=== PATIENT | male | born 1965 | race Caucasian/White ===

== ENCOUNTER 2016-11-14 23:50 | Emergency (ER) | payer SELFPAY ==
[2016-11-14 20:21] LABS: BASOPHILS 0.7 %; BASOPHILS ABSOLUTE 0.07 10/3/uL (0.0-0.16); EOSINOPHILS 7.7 %; EOSINOPHILS ABSOLUTE 0.81 10/3/uL (0.0-0.53); HEMATOCRIT 43.2 % (40.0-51.0); HEMOGLOBIN 15.5 g/dL (13.6-17.8); IMMATURE GRANULOCYTES 0.2 %; IMMATURE GRANULOCYTES ABSOLUTE 0.02 10/3/uL (0.0-0.11); LYMPHOCYTES 24.4 %; LYMPHOCYTES ABSOLUTE 2.56 10/3/uL (0.67-4.30); MEAN CORPUS HGB CONC 35.9 g/dL (32.0-36.0); MEAN CORPUSCULAR HEMOGLOB 29.2 pg (26.0-34.0); MEAN CORPUSCULAR VOLUME 81.5 fL (80-100); MEAN PLATELET VOLUME 10.8 fL (9.2-13.0); MONOCYTES 4.3 %; MONOCYTES ABSOLUTE 0.45 10/3/uL (0.21-1.20); NEUTROPHILS 62.7 %; NEUTROPHILS ABSOLUTE 6.58 10/3/uL (2.02-8.40); PLATELET COUNT 286 10/3/uL (150-400); RBC DISTRIBUTION WIDTH 12.4 % (12.0-16.0); WHITE BLOOD CELLS 10.5 10/3/uL (4.5-10.5)
[2016-11-14 20:22] LABS: MANUAL DIFF NO %
[2016-11-14 20:36] LABS: A/G RATIO 1.1 (0.7-1.9); ALBUMIN 3.9 G/DL (3.5-5.0); BUN (BLOOD UREA NITROGEN) 17 MG/DL (6-23); CALCIUM, SERUM 8.8 MG/DL (8.5-10.4); CHLORIDE, SERUM 101 MMOL/L (96-112); CO2 (CARBON DIOXIDE) 23 MMOL/L (24-34); CREATININE 1.28 MG/DL (0.70-1.30); GFR AFRICAN AMERICAN 76 ML/MIN (>=60); GFR NON AFRICAN AMERICAN 65 ML/MIN (>=60); GLOBULIN 3.5 G/DL (2.5-4.1); POTASSIUM, SERUM 4.1 MMOL/L (3.5-5.3); SGOT(AST) 24 U/L (5-40); SGPT(ALT) 59 U/L (5-65); SODIUM, SERUM 135 MMOL/L (135-148); TOTAL BILIRUBIN 0.2 MG/DL (0-1.2); TOTAL PROTEIN 7.4 G/DL (6.0-8.5)
[2016-11-14 20:39] LABS: ALKALINE PHOSPHATASE 90 U/L (45-117); GLUCOSE, SERUM 364 MG/DL (60-99)
[2016-11-15 01:12] LABS: ASCORBIC ACID (UR NOT ORDER) NEG (NEG); BILIRUBIN, URINE NEGATIVE (NEG); ER URINALYSIS TAT 0 Hrs 00 Mins; KETONE, URINE NEGATIVE (NEG); LEUKOCYTE ESTERASE(NOT OR SMALL (NEG); NITRITE (URINE) NEG (NEG); WBC (NOT ORDERED) (RFLEX) 28 (0-5)
[2016-11-15] MEDS ORDERED: ZESTRIL40 MG PO (15:23)
[2016-11-15] MEDS ORDERED: NORV10 PO (15:23)
[2016-11-15] MEDS ORDERED: PRAVACHOL40 MG PO (15:23)
[2016-11-15] MEDS ORDERED: JANUMET1 TA1 PO (15:23)
[2016-11-15] MEDS ORDERED: LANTUS SC (15:23)
[2016-11-15] MEDS ORDERED: CYMBALTA30 PO (15:24)
[2016-11-15] MEDS ORDERED: GARLIC PO (15:24)
[2016-11-15] MEDS ORDERED: ASABAYER PO (15:24)
== END 2016-11-15 03:06 | disposition home or self-care (01) ==
LOC: ER 23:50
PROVIDERS: Emergency Medicine
DX: E11.65 Type 2 diabetes mellitus with hyperglycemia (principal); L03.011 Cellulitis of right finger; Z86.73 Personal history of transient ischemic attack (TIA), and cerebral infarction without residual deficits; Z88.2 Allergy status to sulfonamides; Z88.5 Allergy status to narcotic agent
CPT/HCPCS: 71020; 73130-RT; 80053; 81001; 82009; 82962; 85025; 87040; 87086; 96374; 99285; A9270-GY

== ENCOUNTER 2016-11-15 14:31 | Inpatient (IN) | payer SELFPAY ==
--- NOTE | ~2016-11-15 | HP ---
History And Physical [place] [address] [facility] [place]. [address] NAME: AILEEN LAMB : 69 STATUS : ADM IN PAT#: [id number] AGE: 51 ADM/REG DATE : 11/15/16 MR#: [id number] REPORT SERV DATE: 11/15/16 DICTATED BY: ALEJANDRA LUI DATE: 11/15/16 REPORT STATUS : Draft TRANSCRIBED BY: MODL DATE: 11/15/16 DATE OF ADMISSION: 11/15/2016 EXAMINING PHYSICIAN: Alejandra Lui M.D. REASON FOR ADMISSION: Osteomyelitis of digit 3 of right hand. 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 He presented with an elevated blood sugar at that time over 500. He was found to have a paronychia of the right 3rd finger. No surgical intervention was done, though there was intense pressure at that time, no antibiotics were given. He continued to try to soak it and induce drainage and it never drained completely. He continued with episodic flare up, festering, and swelling, and he saw his primary care nurse practitioner at the [facility] on 11/10/2016. She agreed it was infected but said there is nothing to do about it and would go away. No antibiotics were given again. The patient came to the emergency room last night with elevated blood sugar of 500, and he was found to have a soft tissue swelling throughout the right middle finger with finding suggesting osteomyelitis in the distal phalanx. He was called by Radiology this morning to return back to the emergency room. Dr. Diallo saw him in the waiting room in the emergency room and requested direct admission. The patient has been admitted directly from the waiting room of the emergency room at [facility]. He has an appointment to see Dr. Gustavo Gaona, hand surgeon, with [facility]. PAST MEDICAL HISTORY: He had a stroke in [place], [place] on 07/27/2015. 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 He does have a history of diabetes diagnosed about 10 years ago. Hyperlipidemia and hypertension as well. PAST SURGICAL HISTORY: In 1993, he had bilateral inguinal hernia repair. In 2006, he had a bimalleolar fracture dislocation of his right ankle while playing basketball with college kids. MEDICATIONS: His home medications include the following: Amlodipine 10 mg p.o. daily, aspirin 325 p.o. daily, Duloxetine 30 mg p.o. daily, Lantus 40 units subcu at bedtime, lisinopril 40 mg p.o. daily, pravastatin 40 mg p.o. at bedtime, Janumet one p.o. with breakfast, garlic one a day. ALLERGIES: INCLUDE SULFA CAUSING SWELLING OF HIS FACE WITH NAUSEA AND VOMITING. 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 He does not smoke, drink, or dip snuff. His who works at [employer] in [place] him and he raised the three children. The three children now are two teachers and one a assistant men's lacrosse coach and a principal at [employer] and a History And Physical [address] [place]. [address] NAME: AILEEN LAMB : 69 STATUS : ADM IN [facility]#: [id number] AGE: 51 ADM/REG DATE : 11/15/16 MR#: [id number] REPORT SERV DATE: 11/15/16 DICTATED BY: ALEJANDRA LUI DATE: 11/15/16 REPORT STATUS : Draft TRANSCRIBED BY: TIFFANIE DATE: 11/15/16 daughter who is a nurse at [employer]. He does not take any alcohol. He does not attend episcopal. His children were softball players traveling teams, and he remarried woman now his who lives in [place]. They are raising a grandchild now. He does not attend episcopal presently; however, his father was a Sabianist agriculture science teacher as was his uncle. FAMILY HISTORY: High blood pressure and diabetes run in the family. REVIEW OF SYSTEMS: He has occasional hiccups. He has spasms of his left side. He has some hemiparesis on the left side as well. No double vision. He has gained 30 pounds since his stroke. No fever, chills, night sweats, melena, hematemesis, nausea, vomiting, or diarrhea. He 1st injured the index finger on the right side with turning back the fingernail wrestling with his step- grandchild. No chest pain, shortness of breath. No previous heart history. No cough, fever, chills, or night sweats. No dysuria, fits, seizures, or convulsions. PHYSICAL EXAMINATION: GENERAL: This is an obese white male, in no acute distress. HEENT: EOMI. Sclera is injected on the left side. Conjunctivae pink. NECK: No bruit without any JVD. CHEST: Clear to A and P. HEART: Regular S1, S2 without murmur, gallop, or click. ABDOMEN: Soft, obese, nontender. Bowel sounds positive. No HSM. EXTREMITIES: He has a paronychia and inflammation of the DIP on the 3rd digit right hand. It also has a reddened area at the antecubital fossa into the medial aspect of the upper arm with tenderness and throbbing subjectively. NEUROLOGIC: He withdraws to plantar stimulation. [employer] Team Member is equal and symmetric bilaterally. Coordination appears to be intact. Toes are do not move to plantar stimulation. His strength is 5- on the left and 5+ on the right. I did not test his gait. SKIN: With redness and swelling. Peeling of the distal right DIP. LYMPHATICS: There is no adenopathy palpable. LABORATORY DATA: The x-ray of the hand showed osteomyelitis suspicious for the distal tuft on the right hand. Chest x-ray showed no acute disease. Glucose was 322. Ketones negative. Urinalysis showed specific gravity of 1.027, pH 5. Glycosuria was greater than 500 mg%. Small amount of leukocyte esterase. WBCs 28 per high-power field with floor 4 RBCs per high-power field. CMP showed a creatinine of 1.28 with a BUN of 1.7, sodium 135, potassium 4.1, chloride 102. Glucose today was 364. Liver tests were normal. White count 10,500, hemoglobin 15, hematocrit 43.2, platelets were 286. ASSESSMENT: 1. Osteomyelitis, right distal tuft 3rd digit. 2. Diabetes type 2 uncontrolled in face of the paronychia and the osteomyelitis of the right distal tuft. 3. Paronychia, right distal 3rd finger. 4. Cerebral vascular disease Status post brainstem stroke in 2014, improved remarkably since that time after rehabilitation at [facility]. History And Physical [address] [place]. [address] NAME: AILEEN LAMB : 69 STATUS : ADM IN [facility]#: [id number] AGE: 51 ADM/REG DATE : 11/15/16 MR#: [id number] REPORT SERV DATE: 11/15/16 DICTATED BY: ALEJANDRA LUI DATE: 11/15/16 REPORT STATUS : Draft TRANSCRIBED BY: MODL DATE: 11/15/16 5. Hypertension.. 6. Sulfa allergy. 7. Obesity. 8. Hyperlipidemia. PLAN: I am going to start him on IV Unasyn at 3 g IV q.[address] Gustavo Gaona had agreed to see the patient. Message from Dr. Bishop indicates that Dr. Bishop will evaluate the patient in the morning with possible surgery, and the patient be kept n.p.o. after midnight. DB/TIFFANIE Alejandra Lui M.D. / [id number] CC: Daphnie Matthews M.D. [facility] Gustavo Gaona M.D. Cuate Bishop M.D.
--- NOTE | ~2016-11-15 | HP ---
History And Physical [address] [place]. [address] NAME: EDUIN LAMB : 69 STATUS : ADM IN [facility]#: [id number] AGE: 51 ADM/REG DATE : 11/15/16 MR#: [id number] REPORT SERV DATE: 11/16/16 DICTATED BY: DUC RUSH DATE: 11/16/16 REPORT STATUS : Draft TRANSCRIBED BY: MODHernan DATE: 11/16/16 DATE OF ADMISSION: 11/15/2016 REASON: Right middle finger infection with possible osteomyelitis. HISTORY OF PRESENT ILLNESS: Eduin Lamb is a 51-year-old formerly left-hand dominant male who is now forced to become right-handed after sustaining a brainstem stroke 04/27/2015, which has left him with left-sided weakness. He uses a cane for prolonged ambulation, and he also has a history of insulin-dependent diabetes for the past eight years as well as gout. He was admitted on 11/15/2016 for right middle finger abscess and ascending lymphangitis. Symptoms date back to over a month ago, at which time, he accidentally cut/ripped his right middle finger nail at the nail bed area causing an open wound. He self-treated this with a local wound care, but unfortunately, developed a paronychial infection necessitating a trip to the emergency room. Eventually, the hyponychial area was lanced, purulent discharge was expressed from the area, and he was started on local wound care without p.o. antibiotics. Despite the above, he has been bothered with the above symptoms for several weeks. He was finally admitted yesterday with ascending lymphangitis and a painful finger. X-rays taken at the time of his admission showed some lucency at the dorsal radial aspect of the P3 bone of the middle finger, worrisome for osteomyelitis. He states that his blood sugars have been under fair control, and he has not had any specific fever or chills. He also notes that his ascending lymphangitis, which had a red streak up to his arm has improved with the IV vancomycin and Unasyn started yesterday shortly after admission. PAST MEDICAL HISTORY: 1. Insulin-dependent diabetes, eight years. 2. Brainstem stroke 04/27/2015, with left-sided weakness. 3. Gout. 4. Hypertension. 5. Hypercholesterolemia. 6. Depression. PAST SURGICAL HISTORY: Bilateral inguinal hernia. Other orthopedic problems, ankle fracture treated without surgery. MEDICATIONS: Home medications; 1. Norvasc 10 mg daily. 2. Aspirin 325 daily. 3. Cymbalta 30 mg daily. 4. Insulin Lantus 40 units subcu at bedtime. 5. Janumet 50/100 mg tabs one tab p.o. with breakfast and supper. 6. Pravachol 40 mg daily. 7. Lisinopril 40 mg daily. 8. Garlic one tablet p.o. daily. ALLERGIES: SULFA WHICH CAUSES FACIAL SWELLING AND CODEINE WHICH CAUSES NAUSEA AND VOMITING. History And Physical [address] [address] NAME: EDUIN LAMB : 69 STATUS : ADM IN [facility]#: [id number] AGE: 51 ADM/REG DATE : 11/15/16 MR#: [id number] REPORT SERV DATE: 11/16/16 DICTATED BY: DUC RUSH DATE: 11/16/16 REPORT STATUS : Draft TRANSCRIBED BY: TIFFANIE DATE: 11/16/16 SOCIAL HISTORY: He is . Two or three biological children from another marriage, two with his present , and also has a 5-year-old grandson in his household. He is originally left-handed, but since his stroke has forced himself to use his right hand more and more. 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 He does not smoke and has a rare beer whenever he eats [place] food. FAMILY HISTORY: Noncontributory. REVIEW OF SYSTEMS: See past medical history and past surgical history. PHYSICAL EXAMINATION: GENERAL: Pleasant, cooperative, slightly chunky 51-year-old male, lying in bed, in no acute distress. VITAL: Height 5 feet 9 inches, weight 262 pounds. Blood pressure 148/87, pulse 73, respiratory rate 16, O2 sats on room air 94%, and temperature is 97.9. HEENT: Normocephalic, atraumatic. Male pattern baldness. Pharynx not injected. COR: Regular rate and rhythm. 2+ radial and ulnar pulses. 2+ DP and PT pulses. All fingers are pink and viable. Negative JVD. ABDOMEN: Protuberant, nontender. SKIN: Right middle fingers red and tender about the paronychial and hyponychial area, all in keeping with the localized infection. There is also some evidence of ascending lymphangitis, but this appears to be resolving and is very subtle at this time. LYMPHATIC: Epitrochlear and axillary adenopathy at this time. MUSCULOSKELETAL: C-spine nontender. Full range of motion. Both shoulders, elbows, wrists, and all fingers with functional range of motion except for the right middle finger, which has difficulties achieving full DIP motion secondary to pain. The middle finger once again has redness and tenderness in keeping with a localized infection/paronychial infection. The nail appears normal. TLS spine is nontender. Both hips, knees, and ankles are nontender. It is important to note that the left side does have weakness when testing elbow flexion, strength, and ankle dorsiflexion. IMAGING: X-rays, multiple views of the right hand taken on 11/15/2016 shows no fractures and no retained foreign bodies. There was a very subtle finding of decreased mineralization of the dorsoradial aspect of the P3 bone of the middle finger suspicious for osteomyelitis. IMPRESSION: 1. Right middle finger paronychial infection with possible osteomyelitis of the third finger. 2. Insulin-dependent diabetes. 3. Brainstem stroke in 2014 with left-sided weakness. PLAN: Surgery today for incision and drainage of the wound and possible I and D of bone. The risks and benefits of surgery were discussed with Eduin and his , Asuncion, and both had an opportunity to ask questions. They were answered by me to their satisfaction. History And Physical [address] [address] NAME: EDUIN LAMB ENMA : 69 STATUS : ADM IN PAT#: [id number] AGE: 51 ADM/REG DATE : 11/15/16 MR#: [id number] REPORT SERV DATE: 11/16/16 DICTATED BY: DUC RUSH DATE: 11/16/16 REPORT STATUS : Draft TRANSCRIBED BY: TIFFANIE DATE: 11/16/16 They wished to proceed with surgery. We will plan for this shortly. TRISTEN/TIFFANIE Duc Rush M.D. / [id number] CC: Daphnie Matthews M.D.
--- NOTE | ~2016-11-15 | OP ---
Record Of Operation [facility] [address] [place]. [address] NAME: AILEEN LAMB : 69 STATUS : ADM IN PAT#: [id number] AGE: 51 ADM/REG DATE : 11/15/16 MR#: [id number] REPORT SERV DATE: 11/16/16 DICTATED BY: DUC RUSH DATE: 11/16/16 REPORT STATUS : Draft TRANSCRIBED BY: MODL DATE: 11/16/16 DATE OF PROCEDURE: 11/16/2016 PREOPERATIVE DIAGNOSIS: Right middle finger chronic paronychial infection (greater than one month) with possible P3 osteomyelitis. POSTOPERATIVE DIAGNOSIS: Right middle finger chronic paronychial infection (greater than one month) with possible P3 osteomyelitis. PROCEDURE: Right middle finger, 1. Removal of nail plate with. a. Cultures and biopsy of P3 bone. 2. Irrigation of P3 bones/nail bed region. 3. Marsupialization of dorsal P3 hyponychial area at the dorsal nail fold. ANESTHESIA: Local MAC. SPECIMEN SENT: P3 dorsal bone and cultures. COMPLICATIONS: None. DISPOSITION: The patient was brought to the recovery room in stable condition. PROCEDURE NOTE: The patient was brought to the operating room and placed in supine position. After IV sedation was given, local block using 10 mL of 1% lidocaine plain and 5 mL of 0.5% Marcaine plain was injected into the base of the finger to provide an adequate digital block. Afterwards, the right upper extremity distal to the elbow was prepped and draped in the usual sterile manner. A surgical timeout was performed and all were in agreement. A finger tourniquet was placed on the base of the finger and attention was then directed to the removal of the nail plate. This was done by taking a 15-blade scalpel and making an incision between the nail plate and the hyponychial area. This allowed a Cunningham elevator to be gently placed between the two planes and gently lift up the nail plate from the nail bed. The nail plate was then removed and the area was inspected. There was no pus or gross abnormalities. A 15-blade scalpel was used to make a longitudinal incision overlying the radial aspect of the nail bed starting at its base at the site of questionable osteomyelitis involvement. After this was done, dissection down to the P3 bone was carried out and this bone was noted to be quite firm. Nonetheless, a curette was eventually able to break through the hardened cortex and cultures were taken. A curette was also used to harvest some bone and this was sent for pathology for identification and to rule out osteomyelitis. The wound was irrigated and then the hole left by the curetting of bone was packed with vancomycin powder. The nail bed was closed [id number] using a 4-0 chromic suture. At this point, it was decided that a marsupialization of the dorsal nail fold was indicated for chronic paronychial infection. A long crescent shaped incision was used to excise the portion of the most dorsal skin and this did not reveal any underlying pus or any other Record Of Operation [address] [address] NAME: AILEEN LAMB : 69 STATUS : ADM IN [facility]#: [id number] AGE: 51 ADM/REG DATE : 11/15/16 MR#: [id number] REPORT SERV DATE: 11/16/16 DICTATED BY: DUC RUSH DATE: 11/16/16 REPORT STATUS : Draft TRANSCRIBED BY: TIFFANIE DATE: 11/16/16 abnormalities. Afterwards, the wound was irrigated and a sterile dressing was applied. After the nail plate was trimmed and gently placed back into the area to prevent scarring. After the sterile dressing and the tourniquet was removed, the patient was taken out of IV sedation and brought to the recovery room in stable condition. TRISTEN/TIFFANIE Duc Rush M.D. / [id number] CC: Daphnie Matthews M.D.
--- NOTE | ~2016-11-15 | DS ---
Discharge Summary [facility] [address] [place]. 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 The patient came in on 11/15/2016 after having multiple visits with his PCP and ER. Finally came in with significant erythema, pain, and sepsis as a result of cellulitis of the right hand third digit, concerned about possible osteomyelitis of the distal phalanx, right middle finger. As a result, the patient was started on IV Unasyn and vancomycin; see my Ortho Hand. The patient, as a result, had surgical resection with removal of nail plate with cultures and biopsy, P3 bone; irrigation of P3 bones and nail bed region; marsupialization of dorsal P3 area of the dorsal nail fold. Cultures were sent, did have MRSA there, which was sensitive to the IV vancomycin the patient was being given. The patient's blood cultures, no growth to date. Thankfully, his pathology on the surgical specimen did not show any osteomyelitis. As a result, the patient does not need 6 weeks of IV therapy and does not even need antibiotics thereafter as the source of infection has been surgically removed. Surgical note stated finger without pus and without any gross evidence of osteomyelitis, but surgery was needed per Dr. Bishop, this was done on 11/16/2016. Patient's risk factors include immunosuppression as a result of uncontrolled diabetes, A1c of 11.24 at optimized insulin. We will consider possible outpatient DUNIA for PAD concern. The patient would like a new primary care doctor, specifically a physician. The patient would like to have a rolling walker and home health if is affordable. We will provide carlos assistance at least with the insulin for a month regarding his disability from recent [place] due to brainstem stroke. Educated the patient on 2-g sodium restricted diet. DISCHARGE MEDICATIONS: Norvasc 10 p.o. daily, aspirin 325 p.o. daily, Lipitor 80 p.o. daily, Cymbalta 30 p.o. daily, as well as having NovoLog level 3 sliding scale, Lantus 15 units subcu at bedtime, NovoLog 12 units subcu t.i.d. before meals, lisinopril 40 p.o. daily, Florastor 1 capsule p.o. b.i.d. would not be given, Spiriva 18 mcg capsule inhaled daily for COPD concern, 2-g sodium restricted diet per day, and garlic. DISCHARGE DIAGNOSES: Would be 1. Cellulitis, right third finger. 2. Uncontrolled insulin-dependent diabetes. 3. History of stroke, clinical chronic obstructive pulmonary disease. 4. Concern for PAD, get DUNIA as an outpatient. All questions were answered, it took well over 30 minutes to do. Discharge Summary [address] [address] NAME: AILEEN LAMB : 69 STATUS : DIS IN PAT#: [id number] AGE: 51 ADM/REG DATE : 11/15/16 MR#: [id number] REPORT SERV DATE: 11/20/16 DICTATED BY: FAMILIA CASTRO DATE: 11/19/16 REPORT STATUS : Draft TRANSCRIBED BY: MODL DATE: 11/19/16 BRISA/TIFFANIE Familia Castro DO / [id number] CC: DO CHARISSE Matthews
[2016-11-15] MEDS ORDERED: PRAVACHOL40 MG PO (15:23)
[2016-11-15] MEDS ORDERED: JANUMET1 TA1 PO (15:23)
[2016-11-15] MEDS ORDERED: LANTUS SC (15:23)
[2016-11-15] MEDS ORDERED: ZESTRIL40 MG PO (15:23)
[2016-11-15] MEDS ORDERED: NORV10 PO (15:23)
[2016-11-15] MEDS ORDERED: CYMBALTA30 PO (15:24)
[2016-11-15] MEDS ORDERED: GARLIC PO (15:24)
[2016-11-15] MEDS ORDERED: ASABAYER PO (15:24)
[2016-11-17 04:50] LABS: BASOPHILS 0.6 %; BASOPHILS ABSOLUTE 0.05 10/3/uL (0.0-0.16); EOSINOPHILS 7.9 %; EOSINOPHILS ABSOLUTE 0.68 10/3/uL (0.0-0.53); HEMATOCRIT 41.2 % (40.0-51.0); HEMOGLOBIN 14.2 g/dL (13.6-17.8); IMMATURE GRANULOCYTES 0.2 %; IMMATURE GRANULOCYTES ABSOLUTE 0.02 10/3/uL (0.0-0.11); LYMPHOCYTES 29.1 %; LYMPHOCYTES ABSOLUTE 2.51 10/3/uL (0.67-4.30); MEAN CORPUS HGB CONC 34.5 g/dL (32.0-36.0); MEAN CORPUSCULAR HEMOGLOB 28.7 pg (26.0-34.0); MEAN CORPUSCULAR VOLUME 83.2 fL (80-100); MEAN PLATELET VOLUME 10.8 fL (9.2-13.0); MONOCYTES 6.7 %; MONOCYTES ABSOLUTE 0.58 10/3/uL (0.21-1.20); NEUTROPHILS 55.5 %; PLATELET COUNT 252 10/3/uL (150-400); RBC DISTRIBUTION WIDTH 12.5 % (12.0-16.0); RED CELL COUNT 4.95 10/6/uL (4.7-6.1); WHITE BLOOD CELLS 8.6 10/3/uL (4.5-10.5)
[2016-11-17 04:54] LABS: MANUAL DIFF NO %
[2016-11-17 04:59] LABS: BUN (BLOOD UREA NITROGEN) 20 MG/DL (6-23); CALCIUM, SERUM 8.9 MG/DL (8.5-10.4); CHLORIDE, SERUM 101 MMOL/L (96-112); CO2 (CARBON DIOXIDE) 26 MMOL/L (24-34); CREATININE 1.08 MG/DL (0.70-1.30); GFR AFRICAN AMERICAN 93 ML/MIN (>=60); GFR NON AFRICAN AMERICAN 80 ML/MIN (>=60); PHOSPHORUS, SERUM 4.1 MG/DL (2.5-4.5); POTASSIUM, SERUM 3.9 MMOL/L (3.5-5.3); SODIUM, SERUM 138 MMOL/L (135-148)
[2016-11-17 05:02] LABS: GLUCOSE, SERUM 290 MG/DL (60-99)
[2016-11-17 05:40] LABS: PROCALCITONIN <0.05 ng/mL (<0.5)
[2016-11-19 07:02] LABS: BASOPHILS 0.9 %; BASOPHILS ABSOLUTE 0.06 10/3/uL (0.0-0.16); EOSINOPHILS 10.3 %; EOSINOPHILS ABSOLUTE 0.72 10/3/uL (0.0-0.53); HEMATOCRIT 39.2 % (40.0-51.0); IMMATURE GRANULOCYTES 0.7 %; IMMATURE GRANULOCYTES ABSOLUTE 0.05 10/3/uL (0.0-0.11); LYMPHOCYTES 33.1 %; LYMPHOCYTES ABSOLUTE 2.31 10/3/uL (0.67-4.30); MEAN CORPUS HGB CONC 35.7 g/dL (32.0-36.0); MEAN CORPUSCULAR HEMOGLOB 28.7 pg (26.0-34.0); MEAN PLATELET VOLUME 10.4 fL (9.2-13.0); MONOCYTES 6.7 %; MONOCYTES ABSOLUTE 0.47 10/3/uL (0.21-1.20); NEUTROPHILS 48.3 %; NEUTROPHILS ABSOLUTE 3.36 10/3/uL (2.02-8.40); PLATELET COUNT 231 10/3/uL (150-400); RBC DISTRIBUTION WIDTH 12.4 % (12.0-16.0); RED CELL COUNT 4.87 10/6/uL (4.7-6.1)
[2016-11-19 07:12] LABS: MANUAL DIFF NO %; MEAN CORPUSCULAR VOLUME 80.5 fL (80-100)
[2016-11-19 07:15] LABS: CALCIUM, SERUM 8.7 MG/DL (8.5-10.4); CHLORIDE, SERUM 102 MMOL/L (96-112); CO2 (CARBON DIOXIDE) 28 MMOL/L (24-34); CREATININE 0.99 MG/DL (0.70-1.30); GFR AFRICAN AMERICAN 103 ML/MIN (>=60); GFR NON AFRICAN AMERICAN 89 ML/MIN (>=60); POTASSIUM, SERUM 3.9 MMOL/L (3.5-5.3); SODIUM, SERUM 139 MMOL/L (135-148)
[2016-11-19 07:16] LABS: BUN (BLOOD UREA NITROGEN) 14 MG/DL (6-23); GLUCOSE, SERUM 171 MG/DL (60-99)
[2016-11-19] MEDS ORDERED: NOVOLOG SC ×2 (14:31→14:42)
[2016-11-19] MEDS ORDERED: SPIRIVA INH (14:37)
[2016-11-19] MEDS ORDERED: LIPITOR80 MG PO (14:41)
[2016-11-19] MEDS ORDERED: AUG875 PO (14:54)
== END 2016-11-19 17:31 | disposition home health service (06) | DRG 581 ==
LOC: 5SO 14:31
PROVIDERS: Internal Medicine
PROC: 0PBT0ZX Excision of Right Finger Phalanx, Open Approach, Diagnostic (ICD-10-PCS; principal; 2016-11-15)
PROC: 0HTQXZZ Resection of Finger Nail, External Approach (ICD-10-PCS; 2016-11-15)
DX: L03.011 Cellulitis of right finger (principal); E11.65 Type 2 diabetes mellitus with hyperglycemia; I10 Essential (primary) hypertension; E78.5 Hyperlipidemia, unspecified; E66.9 Obesity, unspecified; F32.9 Major depressive disorder, single episode, unspecified; Z79.84 Long term (current) use of oral hypoglycemic drugs; Z86.73 Personal history of transient ischemic attack (TIA), and cerebral infarction without residual deficits; Z88.2 Allergy status to sulfonamides; Z88.5 Allergy status to narcotic agent; Z79.82 Long term (current) use of aspirin; Z79.899 Other long term (current) drug therapy; Z79.4 Long term (current) use of insulin
CPT/HCPCS: 80048; 80202; 82962; 83036; 83735; 84100; 84145; 85025; 87015; 87040; 87070; 87075; 87077; 87102; 87116; 87186; 87205; 88304; A9270-GY; J0295; J0360; J2250; J3010; J3370